=== PATIENT | female | born 1995 | race Caucasian/White ===

== ENCOUNTER 2020-01-08 16:38 | Emergency (ER) | payer OTHER ==
[2020-01-08 17:06] VITALS: BP 132/71
[2020-01-08] MEDS ORDERED: TETANUS/DIPHTHERIA/PERTUSSIS 0.5 ML SYRINGE IM ONE (19:18)
[2020-01-08] MEDS ORDERED: AMOX/CLAV 875 MG/125 MG TABLET PO STA (19:18)
--- NOTE | 2020-01-08 19:23 | ED Physician Documentation ---
History of Present Illness - Stated complaint Stated Complaint: RT HAND CAT SCRATCH - Chief complaint Chief Complaint: Wound - History obtained from History obtained from: Patient - History of Present Illness Timing: Yesterday Pain level max: 4 Pain level now: 4 - Additonal information Additional information: R hand cat scratch/bite yesterday. Increasing redness and swelling today. No fevers. Unknown last tetanus. Nothing makes it better or worse Review of Systems Constitutional: denies: Fever, Chills Respiratory: denies: Cough GI: denies: Vomiting : denies: Now EGA Skin: denies: Rash Musculoskeletal: denies: Neck pain, Back pain Neurologic: denies: Headache PD PAST MEDICAL HISTORY - Past Medical History Past Medical History: No - Past Surgical History Past Surgical History: No - Present Medications Home Medications: Ambulatory Orders Medication Instructions Recorded Confirmed Amox/Clav 875/125 [Augmentin] 1 each PO Q12H #20 tablet 01/08/20 Etonogestrel [Nexplanon] 68 mg SQ 01/08/20 - Allergies Allergies/Adverse Reactions: Allergies Allergy/AdvReac Type Severity Reaction Status Date / Time No Known Drug Allergies Allergy Verified 01/08/20 17:06 - Social History Does the pt smoke?: No Smoking Status: Never smoker - Immunizations Immunizations are current?: Yes PD ED PE NORMAL - Vitals Vital signs reviewed: Yes - General General: Alert and oriented X 3, No acute distress - HEENT HEENT: Moist mucous membranes - Neck Neck: Supple, no meningeal sign - Cardiac Cardiac: RRR - Respiratory Respiratory: No respiratory distress, Clear bilaterally - Abdomen Abdomen: Soft, Non tender, Non distended - Derm Derm: Warm and dry - Extremities Extremities: Other (Right hand - Erythema and swelling to the webspace of the right hand, no lymphangitis. No streaking. No palmar tenderness. Approximately a 7 x 5 cm area) - Neuro Neuro: Alert and oriented X 3 Results - Vitals Vitals: Vital Signs - 24 hr 01/08/20 17:02 Temperature 36.6 C Heart Rate 100 Respiratory 18 Rate Blood Pressure 132/71 H O2 Saturation 100 Oxygen O2 Source Room air PD MEDICAL DECISION MAKING - ED course Complexity details: considered differential, d/w patient, d/w family ED course: Patient with right hand cellulitis after a cat bite and scratches. Will place on Augmentin. First dose given here. Tdap given. Wound edges marked. Patient counseled regarding signs and symptoms for which I believe and urgent re- evaluation would be necessary. Patient with good understanding of and agreement to plan and is comfortable going home at this time This document was made in part using voice recognition software. While efforts are made to proofread this document, sound alike and grammatical errors may occur. Departure - Departure Disposition: 01 Home, Self Care Clinical Impression: Cat bite Qualifiers: Encounter type: initial encounter Qualified Code(s): W55.01XA - Bitten by cat, initial encounter Cellulitis Qualifiers: Site of cellulitis: extremity Site of cellulitis of extremity: upper extremity Laterality: right Qualified Code(s): L03.113 - Cellulitis of right upper limb Condition: Good Instructions: ED Bite Cat, ED Infec Skin Cellulitis Follow-Up: your,doctor in 3 days for wound check [Other] Prescriptions: Amox/Clav 875/125 [Augmentin] 1 each PO Q12H #20 tablet Comments: Return if you worsen. You need a wound recheck in 2-3 days with your doctor. This should improve over the next 24 hours. Discharge Date/Time: 01/08/20 19:29
== END 2020-01-08 19:29 | disposition home or self-care (01) ==
LOC: ED 16:38
DX: L03.113 Cellulitis of right upper limb (principal); W55.03XA Scratched by cat, initial encounter
CPT/HCPCS: 90471; 90715; 99283; 99284; A9270

== ENCOUNTER 2021-10-20 09:22 | Outpatient (CLI) | payer OTHER ==
--- NOTE | 2021-10-20 10:53 | MRI Report ---
PROCEDURE: Brain W/O INDICATIONS: MIGRAIN WITH AURA TECHNIQUE: Noncontrast axial T1 spin echo, axial T2 fast spin echo, sagittal and axial FLAIR, coronal T2 fast sp in echo, axial gradient echo, axial diffusion and ADC through the brain. COMPARISON: None. FINDINGS: Image quality: Excellent. CSF Spaces: Basal cisterns are patent. No extra-axial fluid collections. Ventricles are normal in size and shape. Brain: No intracranial masses or hemorrhage. Gonzalez/white matter interface is normal. Brainstem appe ars normal. Diffusion-weighted images demonstrate no acute ischemic insult. No chronic ischemic ins ults. Normal intravascular flow voids are present. Skull and face: Calvarium has normal marrow signal. Orbits appear normal. Sinuses: Sinuses and mastoids are clear. IMPRESSION: Negative brain MRI. No explanation for migraines. No recent infarct. Reviewed by: Bill Barrios MD on 10/20/2021 10:51 AM [facility] Approved by: Bill Barrios MD on 10/20/2021 10:51 AM [facility] Station ID: [id number]
== END 2021-10-20 09:23 | disposition home or self-care (01) ==
LOC: DI 09:22
PROVIDERS: ATTEND Physician Assistant
DX: G43.109 Migraine with aura, not intractable, without status migrainosus (principal)